=== PATIENT | female | born 1980 | race Caucasian/White ===

== ENCOUNTER 2016-12-26 23:12 | Emergency (ER) | payer OTHER ==
[~2016-12-26] VITALS: Ht 167.6 cm; Wt 61.4 kg
[2016-12-26 23:35] VITALS: BP 120/75; PULSE 86; RESP 14; O2SAT 99
--- NOTE | 2016-12-26 23:53 | ED.REPORT ---
HPI-Dental/Mouth Prob Date of Service Dec 26, 2016 ED Provider: Terence Albrecht MD The pt is a 36 y/o female presenting to the ED due to a L sided dental abscess onset 2 days ago. She also reports slight difficulty swallowing. Tylenol and Aleve have been taken today to help reduce her symptoms. Nursing Notes Stated Complaint: ABSCESS GUM/TOOTH Chief Complaint: Dental abscess Nursing Notes Reviewed: Yes ([employer], meds not reconciled) Allergies: Coded Allergies: Penicillins (Verified Allergy, Unknown, ANAPHYLAXIS, 12/26/16) codeine (Verified Adverse Reaction, Unknown, N/V, 12/27/16) General Time Seen by MD: 23:52 Chief Complaint Other (L sided dental abscess ) Hx Obtained From: Patient Arrived By: Walk-in Onset Occurred: 2 days ago Symptom Duration: Since onset Recent Healthcare: No recent doctor visit, No recent hospitalization Similar Sx Previous: No Past Medical History Past Medical History None reported Past Surgical History None reported Smoking History Unknown if Ever Smoker Social History None reported Ambulatory Status Independent Review of Systems L sided dental abscess Ears / Nose / Throat: Reports: Mouth pain (L sided ) GI: Reports: Dysphagia (mild ) Complete sys rev & neg: except as marked. Physical Exam Initial Vital Signs Vital Signs (First) Date Time Temp Pulse Resp B/P Pulse Ox O2 Delivery O2 Flow Rate FiO2 12/26/16 23:35 36.7 86 14 120/75 99 Room Air Initial VS: Reviewed, Vital signs normal General/Constitutional: Well-developed, Well-nourished Head / Eyes: Atraumatic, Normocephalic, PERRL Respiratory: Breath sounds normal, Clear to auscultation, No respiratory distress Cardiovascular: Regular rate & rhythm, Heart sounds normal, Intact distal pulses Abdomen / GI: Soft, Non-tender Extremities: Vascular intact, Neuro intact, No swelling, No tenderness Skin: Warm, Dry, No cyanosis Neurologic: Alert, Oriented, Nonfocal Psychiatric: Mood/affect normal, Behavior normal, Normal thought content ENT: Airway patent, Mucous membranes moist Odontogenic abscess at tooth number 19 and 20 No trismus No submandibular swelling Voice is normal No signs of Tate's Angina Neck: Atraumatic, Supple, Full range of motion, No adenopathy Interpretation & Diagnostics Lab Results Interpretation Result Diagram: 12/27/16 0016 12/27/16 0016 Test 12/27/16 00:16 White Blood Count 8.1th/mm3 (3.8-10.1) Red Blood Count 4.49mil/mm3 (3.90-5.20) Hemoglobin 13.3g/dL (12.0-15.6) Hematocrit 40.5% (35.0-46.0) Mean Corpuscular Volume 90.2fL (81-100) Mean Corpuscular Hemoglobin 29.6pg (27.0-35.0) Mean Corpuscular Hemoglobin Concent 32.8% (32.0-37.0) Red Cell Distribution Width 13.2% (12.3-15.4) Platelet Count 199bil/L (150-400) Neutrophils (%) (Auto) 70.3% (40-74) Lymphocytes (%) (Auto) 17.5% (14-46) Monocytes (%) (Auto) 10.6% (4-12) Eosinophils (%) (Auto) 1.2% (0-5) Basophils (%) (Auto) 0.2% (0-3) Sodium Level 138mEq/L (134-144) Potassium Level 3.7mEq/L (3.5-5.2) Chloride Level 100mEq/L (97-108) Carbon Dioxide Level 24mmol/L (18-29) Blood Urea Nitrogen 12mg/dL (6-20) Creatinine 0.63mg/dL (0.57-1.00) Estimat Glomerular Filtration Rate 154mL/min (>59) Glucose Level 71mg/dL (60-99) Calcium Level 9.0mg/dL (8.5-10.1) Total Bilirubin 0.2mg/dL (0.0-1.2) Aspartate Amino Transf (AST/SGOT) 41U/L (0-50) Alanine Aminotransferase (ALT/SGPT) 33U/L (0-32) Alkaline Phosphatase 80U/L (25-150) Total Protein 6.9g/dL (6.4-8.4) Albumin 4.0g/dL (3.4-5.0) Hold Yee Top Tube Received (Received) Procedures Dental Nerve Block Block Performed by: ED physician Consent / Setup / Site Prep: Informed consent provided Anesthesia: Topical benzocaine (topical Cetacaine ) Local Anesthesia: Bupivacaine 0.5%, 2cc Post-Procedure / Complications: No complications Incision & Drainage Abscess I & D Abscess: Dental abscess of the mandible Procedure Performed by: ED physician Consent / Setup / Site Prep: Informed consent provided Location of Abscess: Left lower mandible Local Anesthesia: Bupivacaine 0.5% Procedural Sedation/Analgesia: Analgesia: Dilaudid, Analgesia: Other Pus Drained: Large (5 ML's of pus removed), Purulent discharge Post-Procedure / Complications: No complications, Condition improved, Tolerated procedure well, Patient stable Re-Eval/Medical Decision Med Decision/Clinical Course This is a 36-year-old female presents complaining of abscess with increasing pain and swelling since yesterday. On exam she does have a clinical abscess of the left mandible. He has no evidence of airway compromise, no signs of Tate' s, voice is normal, she is not toxic. An IV was placed and received initial dose of clindamycin and dexamethasone and pain control. She then had topical Cetacaine administered and then a dental block performed with bupivacaine with epinephrine, subsequent to this I was able to incise and drain approximately 4-5 mL of. Material with reduction in swelling in increased comfort. Patient's being discharged on continued clindamycin, when necessary Percocet, and she has a dentist follow-up with this week. Routine return precautions reviewed. Patient's discharge condition Source of Hx: Old records Re-Evaluation/Progress #1: Time of Eval: 01:00 Re-Evaluation/Progress Note: Rechecked pt. Applied numbing medication and performed I+D. Re-Evaluation/Progress #2: Time of Eval: 01:40 Re-Evaluation/Progress Note: Pt rechecked. Informed pt of plan for treatment. Pt understands and agrees with plan for treatment. F/U instructions and RTER warnings given. All questions addressed. Differential Diagnosis: Positive: Abscess dental, Negative: Aphthous ulcer, Facial cellulitis, Frenulum laceration, Herpetic eruption, Lichen planus, Lip laceration, Post-extraction bleeding, Tongue contusion Counseled Regarding: Diagnosis, Lab results, Need for follow-up, When/why to return to ED Discharge & Departure Primary Impression: Dental abscess Disposition: Home Discharge Condition All VS Reviewed: Yes Condition: Stable Additional Instructions: 1. Continue the antibiotic clindamycin 300 mg 4 times a day. Next dose at breakfast time in the morning. 2. You also received a steroid dexamethasone which should help dramatically reduce the swelling as well. 3. We drained a considerable amount of pus from the abscess tonight. 4. Used to do still need to be seen by her dentist for definitive care. Please call tomorrow to schedule an appointment. 5. Symptoms should be continuing to improve over the next several days. If he have new or worsening symptoms-increasing swelling, extension down into the neck , or difficulty swallowing, return again to the emergency department. 6. If needed for pain take Percocet 1-2 tabs up to every 6 hours. Note: This medication does contain a narcotic and causes drowsiness. No driving for at least 4 hours after taking. Referrals: Tee Jeff MD (PCP) Scribe Attestation Portions of this note were transcribed by Tyron Hobbs. I, Dr. Albrecht personally performed the history, physical exam and medical decision-making; I reviewed and confirmed the accuracy of the information in the transcribed note. copies to: Tee Jeff MD, Matthew F MD Dec 26, 2016 23:53 Tyron Hobbs Dec 27, 2016 01:03
[2016-12-27] MEDS ORDERED: Dexamethasone 20 mg/2 mL Oral Solution PO ONE
[2016-12-27] MEDS ORDERED: _oxyCODONE/APAP 5-325 mg Tablet PO PRN
[2016-12-27] MEDS ORDERED: Ondansetron 2 mg/mL 2 mL Inj IVPUSH ONE
[2016-12-27] MEDS ORDERED: Clindamycin Inj 900 MG in IV Premix 1 EACH IV ONE
[2016-12-27] MEDS ORDERED: Dexamethasone Inj 10 MG in 0.9% Sodium Chloride-Pha MIX 50 ML IV ONE ×2
[2016-12-27 00:21] LABS: BASOPHILS % (AUTO) 0.2 % (0-3); EOSINOPHILS % (AUTO) 1.2 % (0-5); MONOCYTES % (AUTO) 10.6 % (4-12); Mean Corpuscular Hemoglobin 29.6 pg (27.0-35.0); Mean Corpuscular Volume 90.2 fL (81-100); NEUTROPHILS % (AUTO) 70.3 % (40-74); Platelet Count 199 bil/L (150-400)
[2016-12-27] MEDS: HYDROmorphone 0.5 mg/0.5 mL iSecure Syringe IVPUSH PRN ×2 (00:30→01:17)
[2016-12-27 01:40] VITALS: BP 118/78; PULSE 84; RESP 16; O2SAT 98
[2016-12-27] MEDS ORDERED: _Clindamycin 150 mg Capsule PO SCH (06:30)
== END 2016-12-27 01:40 | disposition home or self-care (01) ==
LOC: SED 23:12
DX: K04.7 Periapical abscess without sinus (principal); Z88.0 Allergy status to penicillin; Z88.5 Allergy status to narcotic agent
CPT/HCPCS: 36415; 41800; 80053; 85025; 96365; 96375; 96376; 99284; J1100; J1170; J2405; J3490